=== PATIENT | male | born 1940 | race Caucasian/White ===

== ENCOUNTER 2017-04-15 06:26 | Inpatient (IN) | payer MEDICARE, BC ==
[2017-04-15] MEDS ORDERED: Lidocaine 1% 50 ML MDV ONE (06:38)
[2017-04-15] MEDS ORDERED: Bupivacaine 0.5%/EPINEPHrine 1:200,000 50 ML MDV ONE (06:38)
[2017-04-15] MEDS ORDERED: ceFAZolin 2 GM in Premix Bag 1 BAG IV ONE (08:00)
[2017-04-15] MEDS ORDERED: Carbidopa/Levodopa 25-100 MG Tab PO ONE (08:15)
[2017-04-15] MEDS: Dextrose 5%-Lactated Ringers 1,000 ML IV SCH ×2 (08:22→21:21)
[2017-04-15] MEDS ORDERED: fentaNYL 250 MCG/5 ML SDV ONE (08:55)
[2017-04-15] MEDS ORDERED: Ondansetron 4 MG/2 ML SDV ONE (08:56)
[2017-04-15] MEDS ORDERED: Rocuronium 50 MG/5 ML Vial ONE (08:56)
[2017-04-15] MEDS ORDERED: Propofol 200 MG/20 ML SDV ONE (08:56)
[2017-04-15] MEDS ORDERED: Dexamethasone 4 MG/ML SDV ONE (08:56)
[2017-04-15] MEDS ORDERED: Neostigmine Methylsulfate 1 MG/ML 5 ML Syringe ONE (08:56)
[2017-04-15] MEDS: ceFAZolin 2 GM in Sodium Chloride 0.9% 50 ML IV ONE ×2 (09:23→10:37)
[2017-04-15] MEDS ORDERED: Ondansetron 4 MG/2 ML SDV IV PRN (11:49)
[2017-04-15] MEDS: Acetaminophen/HYDROcodone 325-5 MG Tab PO PRN (12:13)
[2017-04-15] MEDS: FLUoxetine 20 MG Cap PO SCH (14:51)
[2017-04-15] MEDS: Pramipexole 0.5 MG Tab PO SCH ×2 (14:51→21:02)
[2017-04-15] MEDS: Sennosides 8.6 MG Tab PO SCH (14:52)
[2017-04-15] MEDS ORDERED: Hypromellose 0.4% Ophth Soln 15 ML Bottle EYEBOTH PRN (16:18)
[2017-04-15] MEDS: ceFAZolin 2 GM in Sodium Chloride 0.9% 50 ML IV SCH (16:38)
[2017-04-15] MEDS: Carbidopa/Levodopa 25-100 MG Tab PO SCH ×2 (16:39→21:03)
[2017-04-16] MEDS: ceFAZolin 2 GM in Sodium Chloride 0.9% 50 ML IV SCH ×2 (00:19→09:47)
[2017-04-16] MEDS: Carbidopa/Levodopa 25-100 MG Tab PO SCH ×4 (05:54→21:30)
[2017-04-16] MEDS: Dextrose 5%-Lactated Ringers 1,000 ML IV SCH (07:14)
[2017-04-16] MEDS ORDERED: Dextrose 5%-Lactated Ringers 1,000 ML IV SCH (07:35)
[2017-04-16] MEDS: LINZESS 145 MCG PO SCH (08:17)
--- NOTE | 2017-04-16 08:36 | PN ---
DATE OF SERVICE: 04/15/2017 SUBJECTIVE: Dejon is postoperative day #1. His vital signs have been stable. His pain is controlled. He has no other questions or concerns today. OBJECTIVE: GENERAL: Dejon Bearden is a 76-year-old male. He is alert and orientated. VITAL SIGNS: TPR is 97.8, 58, 16. Blood pressure 108/61. HEENT: Negative. NECK: Supple. HEART: Regular rate and rhythm. LUNGS: Clear. ABDOMEN: Dressings dry and intact. EXTREMITIES: SCDs are on and there is no peripheral edema. ASSESSMENT: Repair of incarcerated left inguinal hernia and division of the internal inguinal nerve. Date of surgery 04/15/2017. PLAN: 1. Physical therapy to evaluate and treat due to history of supranuclear palsy. 2. Decrease IV to 60 mL/h. 3. Good pulmonary toilet encouraged. 4. Dressing off, may shower. 5. We will evaluate p.r.n. or in a.m. Bindu Tang PA-C /[id number]
[2017-04-16] MEDS: FLUoxetine 20 MG Cap PO SCH (09:43)
[2017-04-16] MEDS: Sennosides 8.6 MG Tab PO SCH (09:44)
[2017-04-16] MEDS: Pramipexole 0.5 MG Tab PO SCH ×3 (09:44→20:26)
[2017-04-16] MEDS: Aspirin 81 MG Tab.EC PO SCH (09:44)
[2017-04-16] MEDS: Acetaminophen/HYDROcodone 325-5 MG Tab PO PRN (12:57)
[2017-04-17] MEDS: Carbidopa/Levodopa 25-100 MG Tab PO SCH ×2 (05:38→09:09)
[2017-04-17] MEDS: LINZESS 145 MCG PO SCH (07:41)
[2017-04-17] MEDS: FLUoxetine 20 MG Cap PO SCH (09:09)
[2017-04-17] MEDS: Pramipexole 0.5 MG Tab PO SCH (09:09)
[2017-04-17] MEDS: Aspirin 81 MG Tab.EC PO SCH (09:09)
[2017-04-17] MEDS: Sennosides 8.6 MG Tab PO SCH (09:09)
[2017-04-17 11:15] VITALS: BP 136/81
[2017-04-17] MEDS: Acetaminophen/HYDROcodone 325-5 MG Tab PO PRN (11:24)
[2017-04-17] MEDS ORDERED: Magnesium Citrate Solution 296 ML Bottle PO ONE (12:28)
--- NOTE | 2017-04-19 10:27 | DISCH ---
FINAL DIAGNOSES: 1. Incarcerated left inguinal hernia. 2. Left ilioinguinal nerve and iliohypogastric nerve at risk for scar entrapment and associated chronic pain. 3. Progressive supranuclear palsy. 4. Hyperlipidemia. 5. Hemiplegia affecting right side. OPERATIVE PROCEDURE: 1. Done on 04/15 is over repair of incarcerated left inguinal hernia with mesh plug technique. 2. Division of left ilioinguinal and iliohypogastric nerves. SUMMARY: This is a 76-year-old male presenting with a very large left inguinal hernia with large amount of the sigmoid colon descending down into the hernia. After preoperative evaluation and discussion, the plan was made to proceed with repair of this, which was done with a general anesthetic on the date of admission. The ilioinguinal nerve and the iliohypogastric nerve on that side were in the plane where the flat portion of the mesh plug system would be placed. Therefore, they were divided so as to reduce the chance of postoperative chronic neuropathic pain. Postoperatively, the patient did well. Due to his underlying medical problems, he was kept 1 extra day to make sure that he would be satisfactorily functional when getting home and appears to be at that point now. Finally, he was discharged home. He will continue his preoperative medications plus [place] 5/325 mg 1 to 2 tabs q.4 hours p.r.n. pain, #20 and plain Tylenol p.r.n. lesser pain. He will be sent home with 1 bottle of magnesium citrate to take tomorrow if he has not had a bowel movement as of yet. Follow up with Bindu Tang at [facility] on 04/26 at 10:00 a.m.
--- NOTE | 2017-04-23 11:06 | OR ---
DATE OF PROCEDURE: 04/15/2017 PREOPERATIVE DIAGNOSIS: Incarcerated left inguinal hernia. POSTOPERATIVE DIAGNOSES: 1. Incarcerated left inguinal hernia. 2. Left ilioinguinal and iliohypogastric nerves at risk for scar entrapment and associated chronic pain. OPERATIVE PROCEDURE: 1. Repair of incarcerated left inguinal hernia with mesh plug technique (00899). 2. Division of the left ilioinguinal nerve (54624). 3. Division of left iliohypogastric nerve (74174). ANESTHESIA: General. CINDER CRUSHER OPERATOR: Bindu Tang PA-C and DEEPIKA Yanes student. INDICATIONS FOR PROCEDURE: This is a 76-year-old presenting with a large nonreducible left inguinal hernia. This appeared to most likely contain some sigmoid colon within it, and the plan is to proceed with repair using mesh plug technique. Given the large size of the hernia, general anesthetic will be used. Additionally, this was reviewed with the patient that, if the ilioinguinal nerve or other nerves in the area appeared to be at risk for entrapment by postoperative scar formation associated with mesh placement and resulting chronic pain, these would be divided so as to prevent chronic neuropathic pain that would result in an area of anesthesia around the inguinal area. Potential risks of the procedure including bleeding, infection, injury to underlying viscera, possible recurrence of the hernia, the mesh becoming infected, as well as the remote possibility of cardiopulmonary, septic, or hemorrhagic complications leading to were discussed, and the patient wishes to proceed. DETAILS OF PROCEDURE: The patient was taken to the operating room and placed in a supine position. After general endotracheal anesthesia was induced, the abdomen and groin areas were prepped and draped. A standard left inguinal incision was made and carried down through the skin and subcutaneous tissue and through the external oblique aponeurosis in line with the external ring. Subaponeurotic flaps were then raised superiorly and inferiorly. As expected, the patient was noted to have a very large indirect hernia. This contained some incarcerated omentum within it, as well as a segment of sigmoid colon. The hernia sac was dissected away from the cord structures down to the level of base of the internal ring. The sac was then entered and the incarcerated components freed from the hernia sac and placed back into the abdomen. The hernia was then resealed with a figure-of- eight stitch of 2-0 Vicryl stitch. The hernia was then placed back into the peritoneal cavity. Then, an extra large mesh plug was then used into the defect. This was affixed to Ousmane's ligament inferiorly with the titanium tacking screws and then to the underside of the conjoint tendon medially, laterally, and superiorly with horizontal mattress sutures of 0 Vicryl stitch. The conjoint tendon was approximated to Ousmane's ligament with a running #1 Vicryl stitch as well, and at that point, the inguinal floor was examined. Both the ilioinguinal nerve and iliohypogastric nerves would be lying in the area where the flat portion of the mesh plug system would be present. Given this, these were both divided at the lateral extent of the incision to minimize chances of postop neuropathic pain. The flat portion of the mesh plug system was then sutured lateral to the cord structures with 0 Vicryl stitch and then affixed to the pubic tubercle with a titanium tacking screw as well. At that point, the external oblique aponeurosis was approximated with 4-0 Vicryl stitch and the subcutaneous tissue was approximated with 4-0 Vicryl and the skin with eliza. Dressing was applied. The patient was taken to the recovery room in satisfactory condition. Physician assistant produce manager Bindu Tang played an essential role in assisting in this case, helping to position the patient, retract structures as needed, as well as suturing and cutting sutures when indicated. Her presence improved patient's safety and decreased operative time. Timi Guzman MD /[id number]
== END 2017-04-17 13:04 | disposition home or self-care (01) | DRG 351 ==
LOC: JP.SDSSCHI 06:26 → JP.SDS 06:26 → JP.2SS 10:10 → EDSTATUS 11:00
PROVIDERS: ADMIT Surgery; ATTEND Surgery
PROC: 018B0ZZ Division of Lumbar Nerve, Open Approach (ICD-10-PCS; principal; 2017-04-15)
PROC: 0YU60JZ Supplement Left Inguinal Region with Synthetic Substitute, Open Approach (ICD-10-PCS; principal; 2017-04-15)
DX: K40.30 Unilateral inguinal hernia, with obstruction, without gangrene, not specified as recurrent (principal); G23.1 Progressive supranuclear ophthalmoplegia [Steele-Richardson-Olszewski]; G21.9 Secondary parkinsonism, unspecified; G81.91 Hemiplegia, unspecified affecting right dominant side; E78.5 Hyperlipidemia, unspecified; F32.9 Major depressive disorder, single episode, unspecified; Z87.891 Personal history of nicotine dependence; Z91.030 Bee allergy status; Z79.82 Long term (current) use of aspirin; N40.1 Benign prostatic hyperplasia with lower urinary tract symptoms; G89.29 Other chronic pain
CPT/HCPCS: 36415; 80053; 83735; 83880; 84100; 85027; 88302; 93005; 94667; 94762; 97110-GP; 97162-GP; 97530-GP; A9270-GY; C1781; J0690; J1100; J2405; J2704; J3010; J7042; J7050

== ENCOUNTER 2017-04-20 12:37 | Emergency (ER) | payer MEDICARE, BC ==
[2017-04-20 12:56] VITALS: BP 102/68
--- NOTE | 2017-04-20 14:05 | EDM.PDOC ---
ED HPI GENERAL MEDICAL PROBLEM - General Chief Complaint: Gastrointestinal Problem Stated Complaint: CONSTIPATION Time Seen by Provider: 04/20/17 14:01 Source of Information: Reports: Patient, RN Notes Reviewed History Limitations: Reports: No Limitations - History of Present Illness INITIAL COMMENTS - FREE TEXT/NARRATIVE: 76-year-old gentleman presents emergency department day complaint of constipation, he recently underwent hernia repair has not had a bowel movement in 6 days today he tried to 4 bottles of magnesium citrate and 3 enemas with success - Related Data Allergies Allergy/AdvReac Type Severity Reaction Status Date / Time venom-honey bee Allergy Severe Anaphylactic Verified 04/15/17 07:48 [bee venom (honey bee)] Shock Home Meds: Home Meds Carbidopa/Levodopa [Sinemet 25-100 mg] 1 tab PO QID 10/23/13 [History] FLUoxetine [PROzac] 40 mg PO BEDTIME 10/23/13 [History] Hydrocodone/Acetaminophen [Hydrocodon-Acetaminophn 10-325] 5 - 325 mg PO Q4H PRN 10/23/13 [History] Naproxen Sodium [Aleve] 2 tab PO DAILY 02/25/15 [History] Aspirin [Children's Aspirin] 162 mg PO DAILY 04/12/17 [History] EPINEPHrine [Epipen] 0.3 ml IM ASDIRECTED PRN 04/12/17 [History] Linaclotide [Linzess] 1 cap PO DAILY 04/12/17 [History] Multivitamin [Multivitamins] 1 tab PO DAILY 04/12/17 [History] Pramipexole [Mirapex] 1 tab PO TID 04/12/17 [History] Sennosides/Docusate Sodium [Senna Laxative Tablet] 1 - 2 tab PO DAILY 04/12/17 [ History] Past Medical History HEENT History: Reports: Impaired Vision Other Neuro History: Progressive supranuclear palsy - Infectious Disease History Infectious Disease History: Reports: Chicken Pox, Measles, Mumps - Past Surgical History HEENT Surgical History: Reports: Cataract Surgery, Tonsillectomy Neurological Surgical History: Reports: None Other Musculoskeletal Surgeries/Procedures:: repair of knee cap Social & Family History - Tobacco Use Smoking Status *Q: Never Smoker Years of Tobacco use: 3 Used Tobacco, but Quit: Yes Month Tobacco Last Used: unknown Second Hand Smoke Exposure: No - Caffeine Use Caffeine Use: Reports: Coffee - Alcohol Use Days Per Week of Alcohol Use: 0 - Recreational Drug Use Recreational Drug Use: No ED ROS GENERAL - Review of Systems Review Of Systems: See Below Constitutional: Reports: No Symptoms Respiratory: Reports: No Symptoms Cardiovascular: Reports: No Symptoms GI/Abdominal: Reports: Abdominal Pain, Constipation : Reports: No Symptoms ED EXAM, GI/ABD - Physical Exam Exam: See Below Exam Limited By: No Limitations General Appearance: Alert, WD/WN, No Apparent Distress GI/Abdominal: Normal Bowel Sounds, Soft, Non-Tender, No Organomegaly, No Abnormal Bruit, No Mass, Distention Course - Vital Signs Last Recorded V/S: Last Vital Signs Temp 96.8 F 04/20/17 14:02 Pulse 71 04/20/17 14:02 Resp 14 04/20/17 14:02 BP 102/68 04/20/17 14:02 Pulse Ox 95 04/20/17 14:02 - Orders/Labs/Meds Orders: Active Orders 24 hr Category Date Time Status Enema [RC] ASDIRECTED Care 04/20/17 14:47 Active Meds: Medications Discontinued Medications Generic Name Dose Route Start Last Admin Trade Name Michelle PRN Reason Stop Dose Admin Metoclopramide HCl 10 mg 04/20/17 14:47 04/20/17 15:02 Reglan PO 04/20/17 14:48 10 mg ONETIME ONE Administration Simethicone 80 mg 04/20/17 14:47 04/20/17 15:02 Simethicone PO 04/20/17 14:48 80 mg ONETIME ONE Administration Departure - Departure Time of Disposition: 16:03 Disposition: Home, Self-Care 01 Condition: Fair Clinical Impression: Functional constipation - Discharge Information Forms: ED Department Discharge Additional Instructions: Try the medications of Reglan to stimulate bowel movement and simethicone for excess gas, Please followup with your primary care provider in 3-5 days if not better, please call return to the emergency department with worsening of symptoms. - My Orders Last 24 Hours: My Active Orders 04/20/17 14:47 Enema [RC] ASDIRECTED - Assessment/Plan Last 24 Hours: My Active Orders 04/20/17 14:47 Enema [RC] ASDIRECTED Plan: Assessment Acuity = acute Site and laterality = functional constipation Etiology = slow transit time Manifestations = abdominal distention Location of injury = Home Lab values = x-ray shows large amount of gas and moderate stool no definite bowel obstruction noted Plan He was able to pass some gas with enema and combination Reglan and simethicone plan is to try these 2 medications at home follow-up with primary care in 3-5 days if no improvement Patient was in agreement with the plan all questions were answered, they were instructed to return to the emergency department or call for worsening symptoms. This note was dictated using [employer] voice recognition software please call with any questions.
--- NOTE | 2017-04-20 14:29 | CR ---
Abdomen 1V Flat INDICATION: pain, constipation FINDINGS: Moderate amount of gas throughout the colon. No definitive evidence for small bowel obstru ction. Surgical skin eliza projected over the left lower quadrant.
[2017-04-20] MEDS ORDERED: Metoclopramide 10 MG Tab PO ONE (14:47)
[2017-04-20] MEDS ORDERED: Simethicone 80 MG Tab.Chew PO ONE (14:47)
== END 2017-04-20 16:20 | disposition home or self-care (01) ==
LOC: JP.ED 12:37
DX: K59.04 Chronic idiopathic constipation (principal); Z98.49 Cataract extraction status, unspecified eye; Z98.890 Other specified postprocedural states; Z79.899 Other long term (current) drug therapy; Z79.82 Long term (current) use of aspirin; Z91.030 Bee allergy status
CPT/HCPCS: 74000; 99283; A9270

== ENCOUNTER 2017-05-04 06:02 | Day surgery (SDC) | payer MEDICARE, BC ==
[2017-05-04] MEDS ORDERED: Dextrose 5%-Lactated Ringers 1,000 ML IV SCH (07:00)
[2017-05-04] MEDS ORDERED: Propofol 200 MG/20 ML SDV ONE (07:03)
[2017-05-04] MEDS ORDERED: fentaNYL 100 MCG/2 ML SDV ONE (07:03)
[2017-05-04] MEDS ORDERED: Midazolam 1 MG/ML 2 ML SDV ONE (07:03)
[2017-05-04 09:40] VITALS: BP 111/59
--- NOTE | 2017-05-05 18:08 | OR ---
DATE OF PROCEDURE: 05/04/2017 PREOPERATIVE DIAGNOSIS: Severe constipation. POSTOPERATIVE DIAGNOSIS: Severe constipation with no anatomic abnormalities at the time of colonoscopy. OPERATIVE PROCEDURE: Flexible colonoscopy. ANESTHESIA: IV sedation. INDICATION FOR PROCEDURE: This is a 76-year-old with progressive supranuclear palsy, who has been having almost intractable problems with constipation. Multitude of agents and enemas have been used with relatively poor results. To rule out any obstructive lesion, the plan is to proceed with a flexible colonoscopy at this time. The patient had 1.5 of the usual dose of MiraLAX and does report that his stool is coming out fairly clear at this point. The patient says his abdomen feels quite good this morning after the clean out by means of the MiraLAX. The plan is to proceed with a colonoscopy with biopsies and/or polypectomy as indicated. Potential risks including bleeding and perforation were discussed, and the patient wishes to proceed. DETAILS OF PROCEDURE: The patient was taken to the operating room and placed in a left lateral decubitus position. IV sedation was administered, after which the initial digital rectal exam was performed and it was unremarkable. Colonoscope was then eventually passed along the cecum. In fact he did have liquid stool present, but the vast majority of the surfaces were able to be visualized. There were no areas of colitis, no diverticula, and no masses or signs of neoplasia as well as there was nothing anatomically to account for his constipation per se. The scope was then withdrawn and the above findings reconfirmed, and the procedure then concluded. As discussed with the patient and and daughter postoperatively, the MiraLAX does appear to be effective in getting him relieved of the constipation, and they will be instructed to experiment with the MiraLAX using the 119 grams of MiraLAX in 32 ounces of Gatorade with 1, 2 or 3 of these as needed, perhaps once a week. I think that will make the management of the bowel situation much simpler. Followup at this point will p.r.n. He will be following up for routine healthcare with Dr. Donovan. Timi Guzman MD /[id number]
== END 2017-05-04 10:30 | disposition home or self-care (01) ==
LOC: JP.SDS 06:02
PROVIDERS: ATTEND Surgery
DX: K59.00 Constipation, unspecified (principal); F32.9 Major depressive disorder, single episode, unspecified; Z91.030 Bee allergy status; Z98.890 Other specified postprocedural states
CPT/HCPCS: 45378; J2704; J3010; J7042; J2250

== ENCOUNTER 2018-02-26 11:21 | Emergency (ER) | payer MEDICARE, BC ==
[2018-02-26 11:35] VITALS: BP 122/73
[2018-02-26] MEDS ORDERED: Lidocaine 1% with EPINEPHrine 1:100,000 50 ML MDV INFILT ONE (11:35)
[2018-02-26] MEDS ORDERED: Bacitracin Oint 1 GM U/D Packet TOP ONE (11:35)
--- NOTE | 2018-02-26 11:50 | EDM.PDOC ---
ED HPI GENERAL MEDICAL PROBLEM - General Chief Complaint: Laceration Stated Complaint: LACERATION ON HEAD Time Seen by Provider: 02/26/18 11:42 Source of Information: Reports: Patient History Limitations: Reports: No Limitations - History of Present Illness INITIAL COMMENTS - FREE TEXT/NARRATIVE: Dejon presents today for laceration to scalp. His daughter was assisting him transfer, they stumbled and fell backward with Dejon striking his head on a TV stand. He denies LOC, nausea, headache or change in vision. - Related Data Allergies Allergy/AdvReac Type Severity Reaction Status Date / Time venom-honey bee Allergy Severe Anaphylactic Verified 02/26/18 11:36 [bee venom (honey bee)] Shock Home Meds: Home Meds Carbidopa/Levodopa [Sinemet 25-100 mg] 1 tab PO QID 10/23/13 [History] FLUoxetine [PROzac] 40 mg PO BEDTIME 10/23/13 [History] Naproxen Sodium [Aleve] 440 mg PO DAILY 02/25/15 [History] EPINEPHrine [Epipen] 0.3 ml IM ASDIRECTED PRN 04/12/17 [History] Multivitamin [Multivitamins] 1 tab PO DAILY 04/12/17 [History] Pramipexole [Mirapex] 0.25 mg PO TID 04/12/17 [History] Sennosides/Docusate Sodium [Senna Laxative Tablet] 1 - 2 tab PO DAILY 04/12/17 [ History] Past Medical History HEENT History: Reports: None Cardiovascular History: Reports: None Respiratory History: Reports: None Gastrointestinal History: Reports: Chronic Constipation Genitourinary History: Reports: Renal Calculus Musculoskeletal History: Reports: Fracture, Other (See Below) Other Musculoskeletal History: multifracture C1 Neurological History: Reports: Other (See Below) Other Neuro History: Progressive supranuclear palsy; Parkinsons Psychiatric History: Reports: Depression Endocrine/Metabolic History: Reports: None Hematologic History: Reports: None Immunologic History: Reports: None Oncologic (Cancer) History: Reports: None Dermatologic History: Reports: None - Infectious Disease History Infectious Disease History: Reports: Chicken Pox, Measles, Mumps - Past Surgical History HEENT Surgical History: Reports: Cataract Surgery, Tonsillectomy GI Surgical History: Reports: Colonoscopy, Hernia, Inguinal Neurological Surgical History: Reports: None Musculoskeletal Surgical History: Reports: Other (See Below) Other Musculoskeletal Surgeries/Procedures:: repair of knee cap Social & Family History - Family History Family Medical History: Noncontributory - Caffeine Use Caffeine Use: Reports: Coffee, Tea ED ROS GENERAL - Review of Systems Review Of Systems: See Below Constitutional: Denies: Fever, Chills, Malaise HEENT: Reports: Other (Laceration to left posterior/lateral occiput. ) Respiratory: Denies: Shortness of Breath, Wheezing, Cough Cardiovascular: Denies: Chest Pain, Dyspnea on Exertion, Edema, Lightheadedness , Palpitations, Syncope Endocrine: Reports: No Symptoms GI/Abdominal: Reports: No Symptoms Musculoskeletal: Reports: No Symptoms Skin: Reports: Other Neurological: Reports: Other (Patient and his family deny any change from his normal status ). Denies: Confusion, Dizziness, Headache, Numbness, Tingling, Weakness Psychiatric: Reports: No Symptoms Hematologic/Lymphatic: Reports: No Symptoms Immunologic: Reports: No Symptoms ED EXAM, SKIN/RASH Exam: See Below Text/Narrative:: Dejon is an alert and oriented 77 year old male presenting to the emergency room for laceration to the scalp status post fall while transferring. Bleeding controlled, no LOC, fall was witnessed. Exam Limited By: No Limitations General Appearance: Alert, WD/WN, No Apparent Distress Eye Exam: Bilateral Eye: EOMI, Normal Inspection, PERRL Ears: Normal External Exam, Normal Canal, Hearing Grossly Normal, Other ( Bilateral ears have cerumen present, no discharge or drainage. ) Nose: Normal Inspection Throat/Mouth: Normal Inspection, Normal Lips, Normal Teeth, Normal Gums, Normal Oropharynx, Normal Voice, No Airway Compromise Head: Normocephalic, Other (Laceration to posterior/lateral occiput, bleeding controlled.) Neck: Normal Inspection, Supple, Non-Tender, Full Range of Motion. No: Lymphadenopathy (R), Lymphadenopathy (L) Respiratory/Chest: No Respiratory Distress, Lungs Clear, Normal Breath Sounds, No Accessory Muscle Use, Chest Non-Tender Cardiovascular: Normal Peripheral Pulses, Regular Rate, Rhythm, No Edema, No Murmur, No Rub Peripheral Pulses: 2+: Radial (L), Radial (R) Back Exam: Normal Inspection, Full Range of Motion. No: CVA Tenderness (R), CVA Tenderness (L) Extremities: Normal Inspection, Normal Range of Motion, Non-Tender, No Pedal Edema, Normal Capillary Refill Neurological: Alert, Oriented, Normal Cognition, Other (History of Parkinson's, no change from regular status. ) Psychiatric: Normal Affect, Normal Mood Skin: Warm, Dry, Normal Color, No Rash, Other (Laceration to posterior/lateral left occiput) Location, Skin: Head Characteristics: Linear Associated features: Tenderness Lymphatic: No Adenopathy ED SKIN PROCEDURES - Laceration/Wound Repair Posterior Lateral Occipital Head Lac/Wound length In cm: 3 Appearance: Subcutaneous, Clean Distal NVT: Neuro & Vascular Intact Anesthetic Type: Local Local Anesthesia - Lidocaine (Xylocaine): 1% with EPI Local Anesthetic Volume: 3cc Skin Prep: Chlorhexidine (Hibiciens), Saline Exploration/Debridement/Repair: Wound Explored, In a Bloodless Field, No Foreign Material Found Closed with: Dean # of Sutures: 7 Tetanus Status Addressed: Yes Complications: No Complication Description: Patient tolerated well. Course - Vital Signs Last Recorded V/S: Last Vital Signs Temp 35.0 C L 02/26/18 11:38 Pulse 71 02/26/18 11:38 Resp 18 02/26/18 11:38 BP 122/73 02/26/18 11:38 Pulse Ox 93 L 02/26/18 11:38 - Orders/Labs/Meds Meds: Medications Discontinued Medications Generic Name Dose Route Start Last Admin Trade Name Michelle PRN Reason Stop Dose Admin Bacitracin 1 dose 02/26/18 11:35 Bacitracin Oint 1 Gm TOP 02/26/18 11:36 ONETIME ONE Lidocaine/Epinephrine 10 ml 02/26/18 11:35 Xylocaine 1% With Epinephrine 1:100,000 INFILT 02/26/18 11:36 ONETIME ONE - Re-Assessments/Exams Free Text/Narrative Re-Assessment/Exam: 02/26/18 12:10 Patient tolerated staple closure well, no untoward effect in ER. He will be discharged to home with his and daughter. Departure - Departure Time of Disposition: 12:13 Disposition: Home, Self-Care 01 Condition: Good Clinical Impression: Laceration of scalp - Discharge Information Instructions: Laceration Care, Adult Referrals: Diomedes Donovan MD [Primary Care Provider] - Forms: ED Department Discharge Additional Instructions: You have been evaluated and treated for a scalp laceration. The wound was closed with dean. You can return to the emergency room in 7 to 10 days for removal or report to your primary provider for removal. Keep the area clean and dry. You may apply bacitracin ointment in a thin layer twice a day as directed to the area. Return for worsening, issues or concerns. Keep your appointment with Dr. Donovan this week. - Assessment/Plan Assessment:: Laceration to scalp 3cm long, linear Uncomplicated closure with 7 dean. Plan: Patient evaluated and treated for a scalp laceration. The wound was closed with 7 dean. He can return to the emergency room in 7 to 10 days for removal or report to your primary provider for removal. Keep the area clean and dry. May apply bacitracin ointment in a thin layer twice a day as directed to the area. Return for worsening, issues or concerns. Keep his appointment with Dr. Donovan this week.
== END 2018-02-26 12:31 | disposition home or self-care (01) ==
LOC: JP.ED 11:21
DX: S01.01XA Laceration without foreign body of scalp, initial encounter (principal); F32.9 Major depressive disorder, single episode, unspecified; Z91.040 Latex allergy status; Z79.899 Other long term (current) drug therapy; W19.XXXA Unspecified fall, initial encounter; W22.8XXA Striking against or struck by other objects, initial encounter
CPT/HCPCS: 12002; 99283-25